=== PATIENT | male | born 1975 | race American Indian/Alaskan Native ===

== ENCOUNTER 2017-01-11 10:22 | Emergency (ER) | payer OTHER ==
[2017-01-11] MEDS ORDERED: Tetracaine 0.5% Ophth 2 ML BOTTLE OD ONE (11:13)
[2017-01-11] MEDS ORDERED: Fluorescein 1 mg Ophthalmic Strip OD ONE (11:14)
[2017-01-11] MEDS ORDERED: Tetracaine 0.5% Ophth (OR ONLY) ONE (11:31)
[2017-01-11] MEDS ORDERED: Fluorescein 1 mg Ophthalmic Strip ONE (11:32)
--- NOTE | 2017-01-11 11:40 | C.PDOC ---
History Of Present Illness 41 year old male presents to the ED with complaints of sudden on set of right eye swelling and pain beginning two hours prior to arrival. Patient states he felt as though a "grain of sand" entered his eye, he washed it with water and applied ice with minimal relief. He notes a white discharge from his eye but denies any rash, fever, of throat swelling. Time Seen by Provider: 01/11/17 10:46 Chief Complaint (Nursing): Eye Problem History Per: Patient History/Exam Limitations: no limitations Onset/Duration Of Symptoms: Hrs Current Symptoms Are (Timing): Still Present Injury To Eye?: No Quality: "Pain" Wears Contact Lens?: No Associated Symptoms: Pain, Swelling, FB Sensation, Discharge From Eye Recent travel outside of the [place]: No Additional History Per: Family Past Medical History Reviewed: Historical Data, Nursing Documentation, Vital Signs Vital Signs: Last Vital Signs Temp 98.9 F 01/11/17 12:32 Pulse 99 H 01/11/17 12:32 Resp 18 01/11/17 12:32 BP 199/100 H 01/11/17 12:32 Pulse Ox 99 01/11/17 12:32 - Medical History PMH: HTN Family History: States: Unknown Family Hx - Social History Hx Alcohol Use: No Hx Substance Use: No - Immunization History Hx Tetanus Toxoid Vaccination: Yes Hx Influenza Vaccination: No Hx Pneumococcal Vaccination: No Review Of Systems Constitutional: Negative for: Fever, Chills Eyes: Positive for: Pain (right eye pain), Redness (redness of the right eye ), Other (right eye swelling) Cardiovascular: Negative for: Chest Pain, Palpitations Respiratory: Negative for: Cough, Shortness of Breath Neurological: Negative for: Dizziness Physical Exam - Physical Exam Appears: Non-toxic, No Acute Distress Skin: Warm, Dry Head: Atraumatic Eye(s): right: PERRL, EOMI, Other (Moderate swelling, conjunctival injection, yellow crusting, and postive chemosis. ), left: Normal Inspection Oral Mucosa: Moist Neck: Supple Chest: Symmetrical, No Deformity Cardiovascular: Rhythm Regular, No Murmur Respiratory: Normal Breath Sounds, No Accessory Muscle Use, No Rales, No Rhonchi , No Stridor, No Wheezing Neurological/Psych: Oriented x3, Normal Speech, Normal Cognition ED Course And Treatment O2 Sat by Pulse Oximetry: 100 (room air ) Progress Note: A fluorescein eye stain was performed revealing a corneal abrasion at 9 o' clock. Patient was given erythromycin and tetracaine 0.5% Ophth Soln. Disposition Counseled Patient/Family Regarding: Studies Performed, Diagnosis, Need For Followup (Patient was informed that his BP is very high and patient reports he is aware. He refuses BP medications at this time. ) - Disposition Referrals: Mukund Moyer MD [Staff Provider] - Disposition: HOME/ ROUTINE Disposition Time: 12:30 Condition: GOOD Additional Instructions: Follow up with the Eye doctor within 1-2 days without fail. return if worsened. Prescriptions: Erythromycin 0.5% [Ilytocin] 5 mg OD TID #1 tube Instructions: Corneal Abrasion (ED) Forms: [facility] (Korean) - Clinical Impression Clinical Impression: Corneal abrasion , Hypertension - Scribe Statement The provider has reviewed the documentation as recorded by the Scribe Maria Luz Frazier All medical record entries made by the Scribe were at my direction and personally dictated by me. I have reviewed the chart and agree that the record accurately reflects my personal performance of the history, physical exam, medical decision making, and the department course for this patient. I have also personally directed, reviewed, and agree with the discharge instructions and disposition.
[2017-01-11] MEDS ORDERED: Erythromycin 0.5% Ophth Oint 1 APPLIC/3.5 G OD STA (11:59)
[2017-01-11] MEDS ORDERED: Erythromycin 0.5% Ophth Oint 1 APPLIC/3.5 G ONE (12:10)
[2017-01-11 12:33] VITALS: BP 199/100; PULSE 99; RESP 18; TEMP 98.9
[2017-01-13 16:52] VITALS: O2SAT 100
== END 2017-01-11 12:15 | disposition home or self-care (01) ==
LOC: C.ER 10:22
DX: S05.01XA Injury of conjunctiva and corneal abrasion without foreign body, right eye, initial encounter (principal); X58.XXXA Exposure to other specified factors, initial encounter